=== PATIENT | female | born 1995 | race African-American/Black ===

== ENCOUNTER 2018-12-22 02:16 | Emergency (ER) | payer SELFPAY ==
[~2018-12-22] VITALS: Ht 157.5 cm; Wt 47.2 kg
[2018-12-22 02:54] VITALS: BP 112/73
--- NOTE | 2018-12-22 02:55 | NUR ---
ED Nurse Note: pt walked in due to cough and sore throat, pt stated she diagnosed with bronchitis x 2 weeks ago and was done with medication and the symptom came back.
[2018-12-22] MEDS ORDERED: TESSALON PERLE100 MG ORAL (03:08)
[2018-12-22] MEDS ORDERED: IBUPROFEN600 MG ORAL (03:08)
--- NOTE | 2018-12-22 03:09 | Emergency Room Report ---
History of Present Illness General Chief Complaint: Upper Respiratory Illness Source: Patient Present Illness HPI Is a 23-year-old female who presents with chief complaint of sore throat, cough , congestion. Onset for last 2-3 days. About 3 weeks ago she had the same symptoms. She has a lot of sick contact in her family. No nausea no vomiting. Worse with swallowing. Worse with inspiration. Has not anything for this. Denies any other complaint. Allergies: Coded Allergies: GUAIFENESIN (Verified Allergy, Unknown, 12/22/18) Patient History Past Medical History: none, see triage record, old chart reviewed Past Surgical History: none Pertinent Family History: none Social History: Denies: smoking Last Menstrual Period: 2017 Now: No - pt stated she is on control Immunizations: other Reviewed Nursing Documentation: PMH: Agreed; PSxH: Agreed Nursing Documentation-PMH Past Medical History: No Stated History Review of Systems Eye: Denies: eye pain, blurred vision ENT: Reports: nose congestion, throat pain; Denies: ear pain, throat swelling Respiratory: Reports: cough; Denies: shortness of breath Cardiovascular: Denies: chest pain, palpitations Gastrointestinal: Denies: abdominal pain, diarrhea, nausea, vomiting Musculoskeletal: Denies: back pain, joint pain Skin: Denies: rash Neurological: Denies: headache, numbness Endocrine: Denies: increased thirst, increased urine Hematologic/Lymphatic: Denies: easy bruising All Other Systems: negative except mentioned in HPI Physical Exam Vital Signs Date Time Temp Pulse Resp B/P (MAP) Pulse Ox O2 Delivery O2 Flow Rate FiO2 12/22/18 02:30 98.8 80 16 113/70 96 Room Air 12/22/18 02:54 99 vitals normal Sp02 EP Interpretation: reviewed, normal General Appearance: well appearing, no apparent distress, alert Head: normocephalic, atraumatic Eyes: bilateral eye PERRL, bilateral eye EOMI ENT: hearing grossly normal, normal pharynx, uvula midline - Enlarged Neck: full range of motion, supple, no meningismus Respiratory: chest non-tender, lungs clear, normal breath sounds Cardiovascular #1: regular rate, rhythm, no murmur Gastrointestinal: normal bowel sounds, non tender, no mass, no organomegaly, no bruit, non-distended Musculoskeletal: back normal, gait/station normal, normal range of motion Psychiatric: mood/affect normal Skin: warm/dry Medical Decision Making Diagnostic Impression: Primary Impression: Upper respiratory infection Qualified Codes: J06.9 - Acute upper respiratory infection, unspecified ER Course patient presents with a viral upper respiratory infection. No evidence of meningitis, strep throat, pneumonia or other serious bacterial infection. Last Vital Signs Date Time Temp Pulse Resp B/P (MAP) Pulse Ox O2 Delivery O2 Flow Rate FiO2 12/22/18 02:54 78 14 Room Air 99 12/22/18 02:54 98.8 112/73 96 Status: improved Disposition: HOME, SELF-CARE Condition: Stable Scripts Benzonatate* (TESSALON PERLE*) 100 Mg Capsule 100 MG ORAL THREE TIMES A DAY, #21 PERLE Prov: Sathish Angelo MD 12/22/18 Ibuprofen* (MOTRIN*) 600 Mg Tablet 600 MG ORAL THREE TIMES A DAY, #30 TAB 0 Refills Prov: Sathish Angelo MD 12/22/18 Referrals: NOT CHOSEN [facility]/MD,REFERRING (PCP) Patient Instructions: Upper Respiratory Infection, Adult Additional Instructions: Increase fluids. Salt water gargle. Follow-up with your doctor in 7 days. Return if worse. Sathish Angelo MD Dec 22, 2018 03:09
--- NOTE | 2018-12-22 03:13 | NUR ---
ED Nurse Note: PT refused Motrin 600MG tab. medication returned to pyxis and has been scanned.
[2018-12-22 03:14] VITALS: BP 112/73
--- NOTE | 2018-12-22 03:28 | NUR ---
ED Nurse Note: PT is Dc per ERMD order. pt is stable for DC. pt is alert and oriented times 4. pt left with all DC notes and prescriptions and belongings. pt is able to teach back DC notes. pt is instructed to follow up with primary MD as soon as possible. pt vital signs is stable. pt status, condition and vital signs reported to ERMD prior to DC. pt ID band removed.
== END 2018-12-22 03:28 | disposition home or self-care (01) ==
LOC: EMR 02:53
DX: J06.9 Acute upper respiratory infection, unspecified (principal); B34.9 Viral infection, unspecified; Z88.8 Allergy status to other drugs, medicaments and biological substances
CPT/HCPCS: 99282